=== PATIENT | male | born 1950 | race Caucasian/White ===

== ENCOUNTER 2019-03-27 | Outpatient (CLI) | payer MEDICARE | END 2019-03-27 11:59 | disposition home or self-care (01) | DX: E78.5 Hyperlipidemia, unspecified (principal); R73.01 Impaired fasting glucose; Z12.5 Encounter for screening for malignant neoplasm of prostate | CPT/HCPCS: 36415; 80053; 80061; 83036; G0103; 83721; 84153 ==

== ENCOUNTER 2020-11-08 07:54 | Outpatient (CLI) | payer MEDICARE ==
[2020-11-08 14:55] LABS: BASOPHILS % (AUTO) 0.3 %; EOSINOPHILS # (AUTO) 0.2 10^3/uL (0.0-0.7); EOSINOPHILS % (AUTO) 2.5 %; HCT - HEMATOCRIT 48.9 % (42.0-52.0); HGB - HEMOGLOBIN 16.2 g/dL (14.0-18.0); LYMPHOCYTES # (AUTO) 1.7 10^3/uL (1.5-3.5); LYMPHOCYTES % (AUTO) 28.5 %; MEAN CORPUSCULAR HEMOGLOBIN 32.2 pg (27.0-31.0); MEAN CORPUSCULAR HGB CONC 33.1 g/dL (32.0-36.0); MEAN CORPUSCULAR VOLUME 97.2 fL (80.0-94.0); MEAN PLATELET VOLUME 10.6 fL (7.4-11.4); MONOCYTES # (AUTO) 0.7 10^3/uL (0.0-1.0); MONOCYTES % (AUTO) 12.2 %; NEUTROPHILS # (AUTO) 3.4 10^3/uL (1.5-6.6); NEUTROPHILS % (AUTO) 56.3 %; PLT - PLATELET COUNT 200 10^3/uL (130-450); RED BLOOD COUNT 5.03 10^6/uL (4.70-6.10); RED CELL DISTRIBUTION WIDTH 13.7 % (12.0-15.0)
[2020-11-08 15:26] LABS: ALBUMIN 4.4 g/dL (3.2-5.5); ALBUMIN/GLOBULIN RATIO 1.6 (1.0-2.2); ALKALINE PHOSPHATASE 64 IU/L (42-121); ALT ALANINE AMINOTRANSFERASE 32 IU/L (10-60); AST ASPARTATE AMINOTRANSFERASE 26 IU/L (10-42); BILIRUBIN,TOTAL 1.1 mg/dL (0.2-1.0); BUN - BLOOD UREA NITROGEN 19 mg/dL (6-20); CALCIUM 9.1 mg/dL (8.5-10.3); CARBON DIOXIDE - CO2 25 mmol/L (21-32); CHLORIDE 104 mmol/L (101-111); CHOL/HDL RATIO 6.2 (<5.0); CHOLESTEROL 284 mg/dL; CREATININE 0.9 mg/dL (0.6-1.2); GFR - MDRD 84 (>89); GLUCOSE 105 mg/dL (70-100); HDL CHOLESTEROL 46 mg/dL; LDL CHOLESTEROL,CALCULATED 185 mg/dL; POTASSIUM 4.4 mmol/L (3.5-5.0); SODIUM 138 mmol/L (135-145); TOTAL PROTEIN 7.1 g/dL (6.7-8.2); TRIGLYCERIDES 263 mg/dL; VLDL CHOLESTEROL 53 mg/dL
== END 2020-11-08 07:55 | disposition home or self-care (01) ==
LOC: LAB.S 07:54
PROVIDERS: ATTEND Internal Medicine
DX: R35.8 Other polyuria (principal); E78.5 Hyperlipidemia, unspecified; Z12.5 Encounter for screening for malignant neoplasm of prostate
CPT/HCPCS: 36415; 80053; 80061; 85025; G0103; 83721; 84153

== ENCOUNTER 2021-02-14 14:33 | Outpatient (CLI) | payer MEDICARE ==
--- NOTE | 2021-02-14 15:33 | XRAY Report ---
PROCEDURE: Knee 2 View LT INDICATIONS: KNEE PAIN, LEFT TECHNIQUE: 2 views of the left knee(s) were acquired. COMPARISON: None. FINDINGS: Bones: No fractures or dislocations. No suspicious bony lesions. Moderate tricompartmental periart icular osteophyte formation. Soft tissues: No joint effusion. No suspicious soft tissue calcifications. IMPRESSION: Osteoarthritis. No acute fracture. No osseous lesion. If symptoms and/or clinical suspic ion for pathology continue, further assessment with repeat plain films, or advanced imaging (e.g., CT , MRI, or bone scan) is recommended for further assessment. Reviewed by: Sony Del Valle MD on 02/14/2021 3:32 PM PDT Approved by: Sony Del Valle MD on 02/14/2021 3:32 PM PDT Station ID: [id number]
== END 2021-02-14 14:34 | disposition home or self-care (01) ==
LOC: DI.S 14:33
PROVIDERS: ATTEND Internal Medicine
DX: M17.12 Unilateral primary osteoarthritis, left knee (principal)

== ENCOUNTER 2021-03-08 09:45 | Outpatient (CLI) | payer MEDICARE ==
--- NOTE | 2021-03-08 10:30 | XRAY Report ---
PROCEDURE: Knee 4 View LT INDICATIONS: L KNEE PX TECHNIQUE: 4 views of the left knee(s) were acquired. COMPARISON: None. FINDINGS: Bones: No fractures or dislocations. Moderate lateral compartment joint space loss in the left knee . Mild symmetric medial compartment joint space loss in both knees. There is slight flattening of the articular surface of the left lateral tibiofemoral compartment and mild subcortical irregularity. No suspicious bony lesions. Soft tissues: Very small left knee joint effusion. No suspicious soft tissue calcifications. IMPRESSION: 1. Left lateral compartment degenerative changes. 2. Very small left knee joint effusion. Reviewed by: Muriel Devlin MD on 03/08/2021 10:29 AM PDT Approved by: Muriel Devlin MD on 03/08/2021 10:29 AM PDT Station ID: [id number]
== END 2021-03-08 23:59 | disposition home or self-care (01) ==
LOC: DI.N 09:45
PROVIDERS: ATTEND Orthopaedic Surgery
DX: M17.12 Unilateral primary osteoarthritis, left knee (principal); M25.462 Effusion, left knee

== ENCOUNTER 2021-10-02 08:00 | Outpatient (CLI) | payer MEDICARE ==
--- NOTE | 2021-10-02 17:40 | XRAY Report ---
PROCEDURE: Finger(s) RT INDICATIONS: RIGHT THUMB PAIN TECHNIQUE: AP hand, 2 views of the first finger(s) acquired. COMPARISON: None FINDINGS: Bones: There is a 4 mm avulsion fracture fragment seen along the proximal base of the proximal phala nx of the thumb, with moderate displacement. No additional acute fractures or dislocations. No suspicious bony lesions. Soft tissues: No suspicious soft tissue calcifications. IMPRESSION: 4 mm moderately displaced avulsion fracture fragment seen along the base of the thumb. Reviewed by: Sebastián Joaquin MD on 10/02/2021 4:38 PM [facility] Approved by: Sebastián Joaquin MD on 10/02/2021 4:38 PM [facility] Station ID: [id number]
== END 2021-10-02 23:59 | disposition home or self-care (01) ==
LOC: DI.S 08:00
PROVIDERS: ATTEND Physician Assistant
DX: S62.511A Displaced fracture of proximal phalanx of right thumb, initial encounter for closed fracture (principal)